=== PATIENT | female | born 1955 | race Caucasian/White ===

== ENCOUNTER 2019-01-27 15:49 | Emergency (ER) | payer SELFPAY ==
[2019-01-27] MEDS ORDERED: levoFLOXacin 500 MG TAB PO ONE (16:47)
--- NOTE | 2019-01-27 16:50 | ED.PDOC ---
History of Present Illness - General Chief Complaint: General Stated Complaint: eye drainage, cough, dysuria Time Seen by Provider: 01/27/19 16:07 Source: patient Exam Limitations: no limitations - History of Present Illness Initial Comments: the patient is a 63-year-old female presenting to emergency room secondary to a multitude of symptoms, most of which seem to be attributable to a Viral upper respiratory tract infection including itchy matted eyes, runny nose, sore throat, hoarseness and a cough. additionally over the last 2 days she has had some urinary frequency and dysuria. No chest pain or shortness of breath. No syncope. Timing/Duration: unsure Severity: mild Improving Factors: nothing Worsening Factors: nothing Associated Symptoms: cough, malaise Allergies/Adverse Reactions: Allergies NO KNOWN ALLERGY Allergy (Verified 01/27/19 15:57) Home Medications: Ambulatory Orders Hydrochlorothiazide 12.5 mg PO BID 01/27/19 Hydroxyzine HCl 25 mg PO BEDTIME 01/27/19 Metoprolol Tartrate [Lopressor] 100 mg PO BID 01/27/19 levoFLOXacin [Levaquin] 500 mg PO DAILY #5 tab 01/27/19 Review of Systems - Review of Systems Constitutional: States: malaise EENTM: States: nose congestion, throat pain Respiratory: States: cough Cardiology: States: no symptoms reported Gastrointestinal/Abdominal: States: no symptoms reported Genitourinary: States: frequency Musculoskeletal: States: no symptoms reported Skin: States: no symptoms reported Neurological: States: no symptoms reported Endocrine: States: no symptoms reported All other Systems: No Change from Baseline Past Medical History (General) - Patient Medical History Hx Stroke: No Hx Asthma: No Hx Cardiac Disorders: No Hx Hypertension: Yes Hx Diabetes: No Surgical History: other - Social History Hx Tobacco Use: No Family Medical History - Family History Mother Family History: No Known Physical Exam - Physical Exam General Appearance: Alert, Comfortable, No apparent distress Eye Exam: bilateral normal Ears, Nose, Throat: nasal congestion, pharyngeal erythema Neck: full range of motion, supple Respiratory: lungs clear, normal breath sounds, no respiratory distress, no accessory muscle use - she does have a mild clearing cough Cardiovascular/Chest: normal peripheral pulses, regular rate, rhythm, no edema Peripheral Pulses: radial,right: 2+, radial,left: 2+ Gastrointestinal/Abdominal: non tender, soft Rectal Exam: deferred Back Exam: other - significant scoliosis Extremity: normal range of motion, non-tender, normal inspection, no pedal edema, normal capillary refill Neurologic: cow trimmer II-XII nml as tested, alert, normal mood/affect, oriented x 3 Skin Exam: normal color Comments: Vital Signs - 24 hr 01/27/19 01/27/19 16:00 16:02 Temperature 97.6 F Pulse Rate [ 66 left brachial] Respiratory 18 20 Rate Blood Pressure 124/82 [left brachial] O2 Sat by Pulse 100 Oximetry Laboratory Tests 01/27/19 16:00 Urine Color Yellow Urine Appearance Sl cloudy Urine pH 7.0 Ur Specific [place] 1.015 Urine Protein Negative Urine Glucose (UA) Negative Urine Ketones Trace Urine Blood Small H Urine Nitrite Negative Urine Bilirubin Negative Urine Urobilinogen 1.0 Ur Leukocyte Esterase Small H Urine RBC 3-5 H Urine WBC 5-10 H Ur Epithelial Cells 0-1 Amorphous Sediment 1+ Urine Bacteria 0 Progress - Progress Progress: 01/27/19 16:50 the patient is a 63-year-old female presenting to emergency room with symptoms of a viral upper respiratory tract infection that does appear to be clearing. She can take [id number] Zyrtec once daily along with low dose of Motrin twice daily for the next few days to reduce symptoms. She does have a small urinary tract infection and is going to be placed on Levaquin 500 milligrams daily for 5 days. Urine will be cultured. She needs to keep herself well-hydrated. ER warnings were given for any worsening. Departure - Departure Clinical Impression: Urinary tract infection Qualifiers: Urinary tract infection type: acute cystitis Hematuria presence: without hematuria Qualified Code(s): N30.00 - Acute cystitis without hematuria Upper respiratory infection Qualifiers: URI type: unspecified viral URI Qualified Code(s): J06.9 - Acute upper respiratory infection, unspecified Disposition: Discharge to Home or Self Care Condition: Fair Departure Forms: ED Discharge - Pt. Copy, Patient Portal Self Enrollment Instructions: Urinary Tract Infection, Adult (DC), Viral Upper Respiratory Infection, Adult (DC) Diet: regular diet Activity: increase activity as tolerated Referrals: JOCELYNE GRIER NP [Primary Care Provider] - 1-2 Weeks Prescriptions: levoFLOXacin [Levaquin] 500 mg PO DAILY #5 tab Home Medications: Ambulatory Orders Hydrochlorothiazide 12.5 mg PO BID 01/27/19 Hydroxyzine HCl 25 mg PO BEDTIME 01/27/19 Metoprolol Tartrate [Lopressor] 100 mg PO BID 01/27/19 levoFLOXacin [Levaquin] 500 mg PO DAILY #5 tab 01/27/19 Additional Instructions: the patient is a 63-year-old female presenting to emergency room with symptoms of a viral upper respiratory tract infection that does appear to be clearing. She can take [id number] Zyrtec once daily along with low dose of Motrin twice daily for the next few days to reduce symptoms. She does have a small urinary tract infection and is going to be placed on Levaquin 500 milligrams daily for 5 days. Urine will be cultured. She needs to keep herself well-hydrated. ER warnings were given for any worsening.
[2019-01-27 16:58] VITALS: BP 153/89; TEMP 97.3; O2SAT 97
== END 2019-01-27 16:58 | disposition home or self-care (01) ==
LOC: ER 15:49
DX: N30.00 Acute cystitis without hematuria (principal); J06.9 Acute upper respiratory infection, unspecified; I10 Essential (primary) hypertension

== ENCOUNTER 2019-03-17 14:02 | Observation (INO) | payer BC ==
[2019-03-17] MEDS ORDERED: ONDANSETRON ODT 8 MG TAB SL ONE (14:35)
[2019-03-17] MEDS ORDERED: SODIUM CHLORIDE 0.9% 1000ML 1,000 ML IVS ONE (14:35)
[2019-03-17] MEDS ORDERED: SUCRALFATE 1 GM/10 ML 1 GM UD PO ONE (14:35)
[2019-03-17] MEDS ORDERED: POTASSIUM CHLORIDE ELIXIR 20 MEQ/15 ML UD PO ONE (15:27)
[2019-03-17] MEDS ORDERED: POTASSIUM CHLORIDE ELIXIR 20 MEQ/15 ML UD ONE (15:27)
[2019-03-17] MEDS ORDERED: MAGNESIUM SULFATE PREMIX 2GM 2 GM in PREMIX BAG 1 BAG IVPB ONE (15:27)
[2019-03-17] MEDS ORDERED: MAGNESIUM SULFATE PREMIX 2GM 50 ML IVPB ONE (15:29)
--- NOTE | 2019-03-17 15:32 | RAD ---
XR ABDOMEN SUPINE AND ERECT WITH CHEST (ABD ACUTE SERIES) HISTORY: 63 years Female nvd 3 days with dizziness COMPARISON: None. TECHNIQUE: Single AP view of the chest and AP supine and upright views of the abdomen. FINDINGS: Severe scoliotic curvature of the thoracolumbar spine. Lungs are mildly hyperexpanded but otherwise clear. No focal consolidation, pleural effusion, or pneumothorax observed. Cardiac silhouette appears within normal limits. Large lucent focus projecting over the lower mediastinum is suggestive of a large hiatal hernia. Atherosclerotic changes are present in the thoracic aorta. Bowel gas pattern is nonspecific. No radiographic evidence of obstruction. No pathologic calcifications are identified with certainty. No acute osseous abnormality detected within the imaged [id number]. IMPRESSION: No evidence of acute cardiopulmonary process. No evidence of an acute intra-abdominal process. Probable large hiatal hernia. Severe scoliotic curvature of the spine. Electronically signed by: Reagan Hartley MD 03/17/2019 3:31 PM CDT
[2019-03-17] MEDS ORDERED: PROMETHAZINE HCL INJ 25 MG in SODIUM CHLORIDE 0.9% 50ML 50 ML IVPB ONE (16:07)
--- NOTE | 2019-03-17 16:21 | ED.PDOC ---
History of Present Illness - General Chief Complaint: General Stated Complaint: Dizziness, nausea Time Seen by Provider: 03/17/19 14:31 Source: patient Exam Limitations: no limitations - History of Present Illness Initial Comments: the patient is a 63-year-old female presenting to the emergency room secondary to a multitude of symptoms progressive over the last couple of weeks. The patient reports that she's had a couple of weeks of feeling tired and a little bit short of breath with exertion. A few days ago she had some palpitations. Yesterday she started having a little bit of diarrhea and a few episodes of nausea and vomiting. She has not been eating well for the last month or 2 she has had a poor appetite. She has had recent psychological stressors due to social standing. No definite fever. No blood in the stool or vomit. No abdominal pain. She does take hydrochlorothiazide twice daily. Timing/Duration: unsure Severity: moderate Improving Factors: nothing Worsening Factors: nothing Associated Symptoms: headaches, loss of appetite, malaise, nausea/vomiting, shortness of breath, weakness Allergies/Adverse Reactions: Allergies NO KNOWN ALLERGY Allergy (Verified 01/27/19 15:57) Home Medications: Ambulatory Orders Hydrochlorothiazide 12.5 mg PO BID 01/27/19 Hydroxyzine HCl 25 mg PO BEDTIME 01/27/19 Metoprolol Tartrate [Lopressor] 100 mg PO BID 01/27/19 Review of Systems - Review of Systems Constitutional: States: malaise, weakness - generalized EENTM: States: no symptoms reported Respiratory: States: short of breath Cardiology: States: palpitations Gastrointestinal/Abdominal: States: diarrhea, nausea, vomiting Genitourinary: States: no symptoms reported Musculoskeletal: States: no symptoms reported Skin: States: no symptoms reported Neurological: States: anxiety Endocrine: States: no symptoms reported All other Systems: No Change from Baseline Past Medical History (General) - Patient Medical History Hx Stroke: No Hx Asthma: No Hx Cardiac Disorders: No Hx Congestive Heart Failure: No Hx Hypertension: Yes Hx Diabetes: No Surgical History: other - Vaccination History Hx Influenza Vaccination: Yes - 2018 Hx Pneumococcal Vaccination: No - Social History Hx Tobacco Use: No Hx Alcohol Use: Yes - Occasional Family Medical History - Family History Mother Family History: No Known Living Status: Still Living Physical Exam - Physical Exam General Appearance: Alert, No apparent distress, Other - the patient does appear a little bit depressed Eye Exam: bilateral normal Ears, Nose, Throat: hearing grossly normal, normal ENT inspection Neck: full range of motion, supple Respiratory: lungs clear, normal breath sounds, no respiratory distress, no accessory muscle use Cardiovascular/Chest: normal peripheral pulses, regular rate, rhythm, no edema Peripheral Pulses: radial,right: 2+, radial,left: 2+, dorsalis pedis,right: 2+, dorsalis pedis,left: 2+ Gastrointestinal/Abdominal: non tender, soft, other - no definite palpable mass. No rebound or peritoneal signs. Rectal Exam: deferred Back Exam: no CVA tenderness, no vertebral tenderness Extremity: normal range of motion, non-tender, normal inspection, no pedal edema, normal capillary refill Neurologic: public health social worker II-XII nml as tested, alert, normal mood/affect - the patient does appear visibly upset., oriented x 3 Skin Exam: normal color Comments: Vital Signs - 24 hr 03/17/19 03/17/19 14:10 15:03 Temperature 96.4 F L Pulse Rate [ 98 H 73 Left Radial] Respiratory 18 18 Rate Blood Pressure 140/82 140/82 [Left Arm] O2 Sat by Pulse 98 97 Oximetry Progress - Progress Progress: 03/17/19 16:23 the patient is 63-year-old female presenting to the emergency room secondary to a multitude of symptoms progressive over the last several weeks. The patient significantly has significant hyponatremia, hypochloremia, hypokalemia and hypomagnesemia. She is receiving IV fluids in an attempt to correct these. She will need to be admitted for slow correction of the sodium. While it is possible she may have a gastroenteritis that is going around town contributing to this issue, it is also very possible that the electrolyte imbalances causing some of the nausea and vomiting. She also apparently does have a fairly large hiatal hernia that is likely contributing. She'll need telemetry monitoring. Vital signs are stable. EKG is reassuring. Admit for correction of the above issues. - Results/Orders Results/Orders: acute abdominal series appears benign. EKG shows normal sinus rhythm at a rate of 73 bpm. Slow R-wave progression. Normal axis. Significant background static. No definitive ST segment or T-wave changes indicative of acute ischemia. Normal QT interval. Laboratory Results - last 24 hr 03/17/19 03/17/1919 14:45 14:45 14:45 WBC 11.3 H RBC 4.87 Hgb 15.1 Hct 41.6 MCV 85.6 MCH 31.0 MCHC 36.3 RDW 12.7 Plt Count 222 MPV 9.9 Absolute Neuts (auto) 9.40 H Absolute Lymphs (auto) 0.90 L Absolute Monos (auto) 0.90 H Absolute Eos (auto) 0.00 Absolute Basos (auto) 0.00 Neutrophils % 83.3 H Lymphocytes % 8.1 L Monocytes % 7.9 Eosinophils % 0.3 L Basophils % 0.4 Sodium 120 L Potassium 2.7 L Chloride 77 L* Carbon Dioxide 28 Anion Gap 17.7 BUN 15 Creatinine 0.49 L BUN/Creatinine Ratio 30.6 H Random Glucose 108 H Serum Osmolality 243.6 L* Lactic Acid Calcium 9.2 Magnesium 1.5 L Total Bilirubin 1.2 H AST 16 ALT 14 Alkaline Phosphatase 43 Creatine Kinase 50 CK-MB (CK-2) 3.4 CK-MB (CK-2) % Not Reportable Troponin I < 0.02 B-Natriuretic Peptide 127.0 H Serum Total Protein 6.9 Albumin 4.2 Globulin 2.7 Albumin/Globulin Ratio 1.6 Amylase 27 L Lipase 20 L 03/17/19 14:45 WBC RBC Hgb Hct MCV MCH MCHC RDW Plt Count MPV Absolute Neuts (auto) Absolute Lymphs (auto) Absolute Monos (auto) Absolute Eos (auto) Absolute Basos (auto) Neutrophils % Lymphocytes % Monocytes % Eosinophils % Basophils % Sodium Potassium Chloride Carbon Dioxide Anion Gap BUN Creatinine BUN/Creatinine Ratio Random Glucose Serum Osmolality Lactic Acid 1.0 Calcium Magnesium Total Bilirubin AST ALT Alkaline Phosphatase Creatine Kinase CK-MB (CK-2) CK-MB (CK-2) % Troponin I B-Natriuretic Peptide Serum Total Protein Albumin Globulin Albumin/Globulin Ratio Amylase Lipase Departure - Departure Clinical Impression: Hyponatremia, Hypokalemia, Hypomagnesemia, Hypochloremia, Mild dehydration Nausea and vomiting Qualifiers: Vomiting type: unspecified Vomiting Intractability: non-intractable Qualified Code(s): R11.2 - Nausea with vomiting, unspecified Disposition: Admit Patient Departure Forms: ED Discharge - Pt. Copy, Patient Portal Self Enrollment Referrals: Camille Bhatti NP [Primary Care Provider] - 1-2 Weeks Home Medications: Ambulatory Orders Hydrochlorothiazide 12.5 mg PO BID 01/27/19 Hydroxyzine HCl 25 mg PO BEDTIME 01/27/19 Metoprolol Tartrate [Lopressor] 100 mg PO BID 01/27/19 Decision To Admit - Decistion To Admit Decision to Admit Reason: Medical Nature Decision to Admit Date: 03/17/19 Decision to Admit Time: 16:26
[2019-03-17] MEDS ORDERED: SODIUM CHLORIDE 0.9% (FLUSH) 10 ML SYG IV PRN (18:46)
[2019-03-17] MEDS ORDERED: IV SET AND CAP CHANGE INJ INJ SCH (19:00)
[2019-03-17] MEDS ORDERED: KCL 20MEQ/0.45% NS 0 ML IVS ONE (19:30)
[2019-03-17] MEDS: KCL 20MEQ/D5NS 1,000 ML IVS PRN (19:52)
--- NOTE | 2019-03-17 20:11 | SSS ---
SUPERVISING PHYSICIAN: Brandon Dubois M.D. CHIEF COMPLAINT: Generalized weakness and dizziness. HISTORY OF PRESENT ILLNESS: This is a 63 year-old female who came into the Emergency Room for generalized symptoms such as weakness, dizziness, feeling tired and a little bit of shortness of breath as well. She states that last Sunday she saw the nurse practitioner, Isabell Bhatti, at the clinic for the first time. At that time she had a reduction in her blood pressure medicine as well as her HCTZ. She states she was taking it twice a day and had moved to once a day. The patient states she was placed on Prozac and she had to have it due to the separation with her for the last 8 months or so. On Sunday, she stated the medication and changed her HCTZ as well as Metoprolol. When she did so she states by Sunday she felt a little bit odd in the back but she was weak and has had electrolytes imbalances before and felt pretty similarly. Over the weekend she did not feel any better and today she just really could not get up. Therefore she came to the E. R. earlier this afternoon. In the E. R., her workup included a CBC which showed a mild elevation in her WBCs to 11.3. She had a low sodium at 120, potassium 2.7, chloride 77, magnesium 1.5. Amylase and lipase were negative. She really denies any other symptoms. She states that on Sunday she that the Prozac was causing her symptoms so she discontinued that on her own. In the E. R., she was given some magnesium as well as p.o. potassium. She has been admitted into observation for volume repletion and electrolyte replacement. PAST MEDICAL HISTORY: 1. Hypertension. 2. Depression with anxiety. CURRENT MEDICATIONS: 1. Hydrochlorothiazide 12.5 mg p.o. b.i.d. 2. Hydroxyzine 25 mg p.o. at bedtime. 3. Toprol 100 mg p.o. b.i.d. ALLERGIES: NO KNOWN DRUG ALLERGIES. FAMILY HISTORY: Reviewed and noncontributory. REVIEW OF SYSTEMS: CONSTITUTIONAL: The patient has no fever, no chills. No recent weight loss or weight gain. Positive for malaise. HEENT: No headaches, vision changes, ear pain, nasal congestion or throat pain. RESPIRATORY: No cough, hemoptysis or pleuritic chest pain. CARDIOVASCULAR: No chest pain, palpitations or peripheral edema. GASTROINTESTINAL: Positive for some nausea and vomiting. One bout of diarrhea in the E. R. earlier. No abdominal pain or constipation. GENITOURINARY: No dysuria, frequency or flank pain. MUSCULOSKELETAL: No joint pain or muscle cramps. ENDOCRINE: No polydipsia, polyuria or polyphagia. No heat or cold intolerance. NEUROLOGIC: Positive for dizziness. No syncope, paresthesias or seizures. HEMATOLOGIC: No easy bruising or transfusion reaction. PHYSICAL EXAMINATION: VITAL SIGNS: Blood pressure 150/76, heart rate 76, respiratory rate 20, temperature 97.9, oxygen saturation 97%. GENERAL: Ms. Cobb is a 63 year-old female who is in no active distress currently. CHEST: Lungs are clear to auscultation bilaterally. CARDIOVASCULAR: Regular rate and rhythm. Normal S1 and S2. ABDOMEN: Soft, positive bowel sounds. GENITOURINARY: Exam is deferred. EXTREMITIES: Lower extremities with no edema. NEUROLOGIC: Alert and oriented. LABORATORY: Labs and films as discussed in the history of present illness, except for the abdominal film which indicates there is a fairly large hiatal hernia. ASSESSMENT: 1. Significant electrolyte imbalance including magnesium, potassium as well as sodium levels. 2. Dehydration contributing to #1. 3. Depression with anxiety. 4. Possible gastroenteritis although the symptoms seem to be more related to the stress levels. 5. History of hypertension. 6. Newly found hiatal hernia. PLAN: At this time the patient will be admitted for volume replacement and electrolyte replacement. Early ambulation for DVT prophylaxis. I will place her on a PPI due to the possible gastritis issues. Will recheck her labs in the morning as well. I am going to leave it up to her primary care physician on resuming her Prozac. The patient only took it for 3 days and has not taken it for the last 3 days, so I am not sure enough of it is in her system to really take an effect anyhow. #[id number] MTDD
[2019-03-18] MEDS: KCL 20MEQ/D5NS 1,000 ML IVS PRN ×2 (03:55→12:19)
[2019-03-18] MEDS ORDERED: PANTOPRAZOLE SODIUM TAB 40 MG PO SCH (06:30)
[2019-03-18] MEDS ORDERED: LOSARTAN POTASSIUM 25 MG TAB PO SCH (09:00)
[2019-03-18 14:16] VITALS: BP 140/75; TEMP 98.2; O2SAT 98
[2019-03-18] MEDS ORDERED: MAGNESIUM OXIDE 400 MG TAB PO ONE (14:43)
[2019-03-18] MEDS ORDERED: POTASSIUM CHLORIDE 20 MEQ TAB PO ONE (14:44)
== END 2019-03-18 16:15 | disposition home or self-care (01) ==
LOC: ER 14:02 → MS 16:59
PROVIDERS: ADMIT Nurse Practitioner; ATTEND Nurse Practitioner
DX: E83.42 Hypomagnesemia (principal); E87.6 Hypokalemia; E87.1 Hypo-osmolality and hyponatremia; E87.8 Other disorders of electrolyte and fluid balance, not elsewhere classified; E86.0 Dehydration; F41.8 Other specified anxiety disorders; I10 Essential (primary) hypertension; K44.9 Diaphragmatic hernia without obstruction or gangrene; Z79.899 Other long term (current) drug therapy
CPT/HCPCS: 96361; 96366 ×2; 96367; 96365; 96376; J7030; J3475; 80048 ×2; 82553; 80053; 36415 ×5; 82150; 81001; 85025 ×2; 82550; 83690; 83735 ×2; 84484; 83880; 83605; 74019; 99285; 93005; G0378

== ENCOUNTER 2019-03-21 11:29 | Inpatient (IN) | payer BC ==
--- NOTE | 2019-03-21 12:00 | ED.PDOC ---
History of Present Illness - General Chief Complaint: Chest Pain/GA Stated Complaint: Nausea, SOB, chest pressure Time Seen by Provider: 03/21/19 11:44 - History of Present Illness Initial Comments: Pt is a 63 y.o. F w/ pmh of HTN who presents to the ED for evaluation of nausea, chest discomfort and generalized malaise. Reports symptoms have been on going for a week. She was discharged from the hospital 3 days prior after being admitted for electrolyte abnormalities. She reports feeling better initially but then her symptoms returned last night where she was having dry heaving. Her HCTZ was switched to losartan. Chest pain is described as pressure, dull in nature, non radiating. 4/10 in severity. Allergies/Adverse Reactions: Allergies NO KNOWN ALLERGY Allergy (Verified 03/21/19 12:08) Home Medications: Ambulatory Orders Losartan Potassium [Cozaar] 50 mg PO DAILY 30 Days #30 tab 03/18/19 Review of Systems - Review of Systems Constitutional: States: malaise, weakness EENTM: States: no symptoms reported Respiratory: States: no symptoms reported Cardiology: States: chest pain, palpitations Gastrointestinal/Abdominal: States: nausea, vomiting Genitourinary: States: no symptoms reported Musculoskeletal: States: no symptoms reported Skin: States: no symptoms reported Neurological: States: no symptoms reported Endocrine: States: no symptoms reported Hematologic/Lymphatic: States: no symptoms reported All other Systems: Reviewed and Negative Past Medical History (General) - Patient Medical History Hx Seizures: No Hx Stroke: No Hx Asthma: No Hx of COPD: No Hx Cardiac Disorders: No Hx Congestive Heart Failure: No Hx Pacemaker: No Hx Hypertension: No Hx Diabetes: No Hx MRSA: No - Vaccination History Hx Influenza Vaccination: Yes - 2018 Hx Pneumococcal Vaccination: No - Social History Hx Tobacco Use: No Hx Alcohol Use: No Hx Substance Use: No Hx Physical Abuse: No Hx Emotional Abuse: No Family Medical History - Family History Mother Family History: No Known Living Status: Still Living Physical Exam - Physical Exam General Appearance: Alert, Comfortable Eyes, Ears, Nose, Throat Exam: normal ENT inspection, pharynx normal Neck: non-tender, supple Respiratory: chest non-tender, lungs clear Cardiovascular/Chest: normal peripheral pulses, regular rate, rhythm Gastrointestinal/Abdominal: non tender, soft Rectal Exam: deferred Extremity: normal inspection, no pedal edema Neurologic: alert, oriented x 3 Skin Exam: normal color, warm/dry Progress - Progress Progress: 03/21/19 12:05 [facility] patient w/ h/o HTN presenting with generalized malaise, nausea, and chest discomfort. Recenlty admitted for similar symptoms, thought secondary to her HCTZ. Plan for labs, treat symptoms, reassess. 03/21/19 13:12 Spoke with Bouchra Alicia who accepts patient for admission for electrolyte abnormalities. - EKG/XRAY/CT Comments: NSR @ 93, normal axis, normal intervals, No STEMI Departure - Departure Clinical Impression: Hyponatremia, Hypokalemia, Hypomagnesemia, Nausea and vomiting Disposition: Admit Patient Condition: Good Departure Forms: ED Discharge - Pt. Copy, Patient Portal Self Enrollment Instructions: DI for Chest Pain Referrals: Camille Bhatti NP [Primary Care Provider] - 1-2 Weeks Home Medications: Ambulatory Orders Losartan Potassium [Cozaar] 50 mg PO DAILY 30 Days #30 tab 03/18/19
--- NOTE | 2019-03-21 12:20 | RAD ---
EXAM DESCRIPTION: Chest,2 Views CLINICAL HISTORY: chest pressure COMPARISON: None TECHNIQUE: PA/lateral FINDINGS: Dextroscoliotic curvature of the thoracolumbar spine. Heart is large with normal pulmonary vascularity. Hiatal hernia behind the heart. No pleural effusion or pneumothorax. Lungs are clear with no consolidating infiltrate. Lateral view shows intact sternum and T-spine. IMPRESSION: Large heart without congestive failure. Large hiatal hernia. Electronically signed by: Tushar Brooks MD 03/21/2019 12:18 PM CDT
[2019-03-21] MEDS ORDERED: MAGNESIUM SULFATE PREMIX 2GM 2 GM in PREMIX BAG 1 BAG IVPB ONE (12:48)
[2019-03-21] MEDS ORDERED: SODIUM CHLORIDE 0.9% 500ML 500 ML IVS ONE (12:48)
[2019-03-21] MEDS ORDERED: POTASSIUM CHLORIDE 20 MEQ TAB PO ONE (12:48)
[2019-03-21] MEDS ORDERED: MAGNESIUM SULFATE PREMIX 2GM 50 ML IVPB ONE (12:54)
--- NOTE | 2019-03-21 13:43 | HP ---
SUPERVISING PHYSICIAN: Brandon Dubois M.D. CHIEF COMPLAINT: Nausea with chest pressure and shortness of breath. . HISTORY OF PRESENT ILLNESS: The patient is a 63 year-old female who came to the Emergency Room due to nausea and chest discomfort. She has generally just felt poorly, though symptoms have been going on for over a week. She was actually in the hospital on 03/17/19 and was admitted at that time for electrolyte disturbance. She was sent home the next day. She initially felt better but then her symptoms returned. She has been nauseated, vomiting with dry heaves. Her Hydrochlorothiazide was recently switched to Losartan for her blood pressure Her chest pain was described as pressure, dull in nature, it was nonradiating. In the Emergency Room, her initial vital signs were temperature 97, heart rate 92, blood pressure 177/92, respiratory rate 18, oxygen saturation 94%. Laboratory studies showed a CBC that was unremarkable. Her chemistries showed a sodium of 119, potassium 3.3, chloride 81, carbon dioxide 25, calcium 8.9, magnesium 1.5. BUN 10, creatinine less than 0.40 and her serum osmolality was 239.1. Liver enzymes were basically within normal limits and her troponin was less than 0.02. TSH 1.09. Urinalysis showed 15 ketones, trace of intact blood, trace of urine leukocyte esterase and 10 to 20 urine WBCs. Her chest x-ray shows large heart without congestive failure and a large he is able to hernia. She was given some magnesium replacement as well as some oral potassium, some fluid bolus and I was called for hospital admission.. PAST MEDICAL HISTORY: 1. Hypertension. 2. Depression 3. Anxiety. CURRENT MEDICATIONS: Losartan. ALLERGIES: NO KNOWN DRUG ALLERGIES. SOCIAL HISTORY: She just recently moved to [place]. She denies any tobacco, ETOH or illicit drug use. REVIEW OF SYSTEMS: GENERAL: Positive for malaise and negative for fever or weight gain. HEENT: Negative for sinus symptoms, ear pain, vision changes or sore throat. RESPIRATORY: Negative for cough, wheezing, shortness of breath. . CARDIOVASCULAR: Positive for chest pressure, negative for or palpitations or tachycardia. GASTROINTESTINAL: Positive for nausea and vomiting. Negative for diarrhea, constipation. GENITOURINARY: Negative for dysuria, frequency or polyuria. . MUSCULOSKELETAL: Negative for arthralgias, myalgias. SKIN: Negative for lesions or rashes.. NEUROLOGIC: Negative for headaches, seizures or weakness. . HEMATOLOGIC: Negative for easy bruising or lymphadenopathy. [id number]: Positive for anxiety and depression. . PHYSICAL EXAMINATION: VITAL SIGNS: Temperature 98.6, heart rate 88. Blood pressure 148/73, respiratory rate 18, Oxygen saturation 98% on room air. GENERAL: This is a 63 year-old female who is lying in her hospital bed. She is in no active distress. HEENT: Normocephalic and atraumatic. Pupils are equal and reactive. Oropharynx is clear. NECK: Supple without mass. CHEST: Lungs are clear to auscultation bilaterally. Chest has equal rise and fall with inspiration and expiration. CARDIOVASCULAR: Regular rate and rhythm. ABDOMEN: Soft, nondistended. It is mildly tender to the epigastric area. Bowel sounds are positive. . EXTREMITIES: No cyanosis, clubbing, or edema. . NEUROLOGIC: Alert and oriented x3. Cranial nerves II through XII are grossly intact. SKIN: Warm and dry. LABORATORY: Labs and films are as per history of present illness.. ASSESSMENT: 1. Significant electrolyte imbalance including hypomagnesemia, hypokalemia and hyponatremia. 2. Urinary tract infection. 3. Dehydration contributing to #1. 4. Depression with anxiety. 5. Gastroesophageal reflux disease that most likely is contributing to #1.. 6. Hypertension. 7. Hiatal hernia. . PLAN: The patient will be admitted to the hospital. She will have IV fluids and will monitor her electrolytes closely. She is on a fluid restriction. At this point, we will hold on any kind of diuretics since she is fairly dehydrated. Start her on Rocephin for her urinary tract infection and will monitor cultures as they become available. She is o a clear liquid diet at this time and will advance that slowly as tolerated. Put her on a PPI for ulcer prophylaxis as well as Lovenox for DVT prophylaxis. I will restart her Losartan. I have given her some Xanax as needed for her anxiety. At some point, she had been on some Prozac and did not take it and we will need to clarify that as she may need to be on some sort of SSRI. We will repeat her lab in the morning and continue to monitor close and follow as needed. #[id number] MTDD
[2019-03-21] MEDS ORDERED: ONDANSETRON INJ 4 MG/2 ML VIAL IV PRN (14:45)
[2019-03-21] MEDS ORDERED: SODIUM CHLORIDE 0.9% (FLUSH) 10 ML SYG IV PRN (14:45)
[2019-03-21] MEDS: ACETAMINOPHEN 325 MG TAB PO PRN ×2 (15:47→20:01)
[2019-03-21] MEDS: KCL 20 MEQ/NS 1,000 ML IVS PRN ×2 (15:48→22:33)
[2019-03-21] MEDS: IV SET AND CAP CHANGE INJ INJ SCH (15:53)
[2019-03-21] MEDS: ALPRAZolam 0.25 MG TAB PO PRN (22:41)
[2019-03-21] MEDS: SODIUM CHLORIDE 0.9% (FLUSH) 10 ML SYG IV SCH (23:27)
[2019-03-22] MEDS: SODIUM CHLORIDE 0.9% 1000ML 1,000 ML IVS PRN ×3 (05:20→21:29)
[2019-03-22] MEDS: SODIUM CHLORIDE 0.9% (FLUSH) 10 ML SYG IV SCH ×2 (08:20→22:48)
[2019-03-22] MEDS: LOSARTAN POTASSIUM 25 MG TAB PO SCH (08:20)
[2019-03-22] MEDS ORDERED: MAGNESIUM HYDROXIDE 30 ML UD PO ONE (11:06)
[2019-03-22] MEDS ORDERED: MAGNESIUM CITRATE 300 ML BTTL PO ONE (13:23)
--- NOTE | 2019-03-22 16:11 | PN ---
SUPERVISING PHYSICIAN: Brandon Dubois MD DATE: SUBJECTIVE: Patient is sitting up in her bed talking with a friend. She has no complaints of chest pain or shortness of breath but she does complain of constipation, although she does admit that she has not eaten much over the last week or so. She does have frequent problems with constipation. We discussed her plan of care and that she would need to see a fixture repairer fabricator due to the continued problems with hyponatremia. OBJECTIVE: VITAL SIGNS: Temperature 97.8, heart rate 84, blood pressure 149/80, respiratory rate 16, oxygen saturation 98% on room air. CHEST: Essentially clear to auscultation bilaterally. CARDIAC: Regular rate and rhythm. GI: Abdomen soft, nondistended, non-tender. Bowel sounds are positive. NEURO: She is awake, alert, and oriented x3. LABORATORY: CBC is basically within normal limits. Chemistries show sodium 122, potassium 4.3, chlorides 92, carbon dioxide 22, BUN less than negative 5, creatinine less than 0.4, serum osmolality 243.0, calcium 8.2, magnesium 1.9, alkaline phosphatase 40, serum total protein 5. Urine culture is pending. All other labs and films have been reviewed via the EMR. ASSESSMENT: 1. Significant electrolyte imbalance including hypomagnesemia, hypokalemia and hyponatremia. 2. Urinary tract infection. 3. Dehydration contributing to #1. 4. Depression with anxiety. 5. Gastroesophageal reflux disease that most likely is contributing to #1.. 6. Hypertension. 7. Hiatal hernia. . PLAN: We will continue present supportive care. At this point, I will continue with her fluids. She may need some Lasix tomorrow. She will continue on fluid restrictions. I advanced her diet, she tolerated it without problems. I gave her some laxative. I am also going to do a workup on her hyponatremia that includes urine osmolality, a random urine sodium and will do routine lab. I will also do a CT of the chest to rule out any small cell lung cancer. She will need a followup with Dr. Rivers and will try to get an appointment with him by calling his office on Sunday. I have also ordered a hemoglobin A1C as she has had a 35-pound weight loss in about 8 to 9 months, although she has been through a very stressful divorce in her family. Otherwise, we will continue to monitor her closely and follow as needed. #[id number] MTDD
[2019-03-22] MEDS: ALPRAZolam 0.25 MG TAB PO PRN ×2 (21:30→22:54)
[2019-03-22] MEDS: DOCUSATE SODIUM 100 MG CAP PO SCH (21:30)
[2019-03-22] MEDS: ACETAMINOPHEN 325 MG TAB PO PRN (22:52)
[2019-03-23] MEDS: SODIUM CHLORIDE 0.9% 1000ML 1,000 ML IVS PRN ×2 (05:14→14:39)
--- NOTE | 2019-03-23 07:30 | CT ---
Sex: Female. : 1955. TECHNIQUE: Axial scans of the chest was performed without intravenous contrast including computer reformations. Total Dose Length Product: 198. This exam was performed according to our departmental dose-optimization program, which includes automated exposure control, adjustment of the mA and/or kV according to patient size and/or use of iterative reconstruction technique. Comparison studies: Chest x-ray March 21, 2019. Clinical history: hyponatremia. Findings: Cardiac: Heart size: Borderline enlarged. Coronary and mitral annular calcification Pericardial effusion: There is a minimal pericardial effusion. The fluid thickness measures about 4 mm. Vasculature: Aorta: Mild calcification.. Pulmonary arteries: No dilatation. Lungs: Reticular opacities toward the lung bases. Greater on the left. Consistent with atelectasis. Pleura: No effusion. Mediastinum: 9 cm esophageal/paraesophageal hiatus hernia. Small anterior mediastinal nodes. Dorinda: No mass. Musculoskeletal: 41 degrees of thoracic dextroscoliosis. Upper abdomen: Aortic atherosclerosis. IMPRESSION: 1. Basilar atelectasis. 2. 9 cm hiatus hernia. 3. Small pericardial fluid. 4. Dextroscoliosis. Electronically signed by: Tristan Obrien MD 03/23/2019 7:27 AM CDT
[2019-03-23] MEDS: LOSARTAN POTASSIUM 25 MG TAB PO SCH (09:20)
[2019-03-23] MEDS: DOCUSATE SODIUM 100 MG CAP PO SCH ×2 (09:20→20:22)
[2019-03-23] MEDS: SODIUM CHLORIDE 0.9% (FLUSH) 10 ML SYG IV SCH ×2 (09:20→20:22)
[2019-03-23] MEDS ORDERED: MAGNESIUM SULFATE PREMIX 2GM 2 GM in PREMIX BAG 1 BAG IVPB ONE (09:20)
[2019-03-23] MEDS ORDERED: MAGNESIUM SULFATE PREMIX 2GM 50 ML IVPB ONE (11:38)
--- NOTE | 2019-03-23 17:02 | PN ---
DATE: 03/23/19 SUPERVISING PHYSICIAN: Brandon Dubois M.D. SUBJECTIVE: The patient is sitting up in bed. We discussed at length her personal situation and all of her health issues. She is very tearful and has tried multiple antidepressants without any degree of relief. She is going through a hostile divorce at this time. She said she was not suicidal but she was very depressed and anxious, and has a difficult time with dealing with a lot of her personal issues. She felt like the Xanax, although helpful, was a little too strong for her, so will decrease her Xanax dose and I feel like she needs to be started on a antidepressant. We discussed that as well. Otherwise she denies any chest pain, shortness of breath, nausea or vomiting. OBJECTIVE: VITAL SIGNS: Temperature 98, heart rate 84, blood pressure 152/79, respiratory rate 16, O2 sat 98% on room air. RESPIRATORY: Essentially clear to auscultation bilaterally. CARDIAC: Regular rate and rhythm. GASTROINTESTINAL: Abdomen is soft, nondistended, non-tender. Bowel sounds are positive. NEUROLOGIC: She is awake, alert and oriented times three. PSYCHIATRIC: She is tearful. She is depressed and very anxious, but very cooperative. LABORATORY: CBC is unremarkable with sodium that has improved to 125, chloride 93, creatinine 0.5, hemoglobin A1c 5.8, serum osmolality 248.8, calcium 8.1, magnesium 1.7. Urine culture is still pending. Urine random sodium is 65. Urine osmolality is pending. CT of the chest shows: 1. Basilar atelectasis. 2. 9 cm hiatal hernia. 3. Small paracardial fluid. 4. Dextroscoliosis. All other labs and films have been reviewed via the EMR. ASSESSMENT: 1. Significant electrolyte imbalance including hypomagnesemia, hypokalemia and hyponatremia. 2. Urinary tract infection. 3. Dehydration contributing to #1. 4. Depression with anxiety. 5. Gastroesophageal reflux disease that most likely is contributing to #1.. 6. Hypertension. 7. Hiatal hernia. . 8. Significant weight loss of 35 pounds over the last 8 to 9 months. Hemoglobin A1c was normal and may be due to increased stress and anxiety. PLAN: We will continue present supportive care. She will have magnesium replacement today. On Sunday, she needs a Dr. Rivers appointment to followup on her hyponatremia. I have done lab for in the morning and decreased her IV fluids. I have also ordered her some Pristiq to start after she gets out of the hospital. She can followup with Isabell Bhatti at that time. Will continue to monitor closely and follow as needed. #[id number] MTDD
[2019-03-23] MEDS: ALPRAZolam 0.25 MG TAB PO PRN (19:41)
[2019-03-23] MEDS: ACETAMINOPHEN 325 MG TAB PO PRN (19:41)
[2019-03-24] MEDS: SODIUM CHLORIDE 0.9% 1000ML 1,000 ML IVS PRN ×2 (02:07→14:39)
[2019-03-24] MEDS: DOCUSATE SODIUM 100 MG CAP PO SCH ×2 (08:36→20:35)
[2019-03-24] MEDS: LOSARTAN POTASSIUM 25 MG TAB PO SCH (08:36)
[2019-03-24] MEDS: SODIUM CHLORIDE 0.9% (FLUSH) 10 ML SYG IV SCH ×2 (08:36→20:36)
[2019-03-24] MEDS ORDERED: levETIRAcetam 250 MG TAB ONE (10:08)
[2019-03-24] MEDS: ACETAMINOPHEN 325 MG TAB PO PRN ×2 (14:39→22:04)
[2019-03-24] MEDS: IV SET AND CAP CHANGE INJ INJ SCH (14:39)
[2019-03-24] MEDS: ALPRAZolam 0.25 MG TAB PO PRN (21:17)
[2019-03-25] MEDS: SODIUM CHLORIDE 0.9% 1000ML 1,000 ML IVS PRN ×2 (03:58→18:43)
--- NOTE | 2019-03-25 07:56 | PN ---
SUPERVISING PHYSICIAN: Arturo Parra MD DATE: SUBJECTIVE: The patient is still anxious but she notes she feels better than she has since she has been in the hospital. She is still having some shortness of breath with exertional effort. We do have an echocardiogram pending. We discussed possibly having a consultation with Fabiola Crisostomo in regards to depression once discharged. She has not had any chest pain. nausea or vomiting. OBJECTIVE: VITAL SIGNS: Temperature 93, heart rate 74, blood pressure 145/73, respiratory rate 16, oxygen saturation 97% on room air. I&Os show negative balance of 70, weight 56.1 kg. GENERAL: The patient appears to be resting comfortably, just feels anxious but alert. CHEST: Lung sounds were fairly clear throughout, just diminished towards the bases. CARDIAC: Regular rate and rhythm. GASTROINTESTINAL: Abdomen is soft, nondistended, non-tender. Bowel sounds are positive. EXTREMITIES: No cyanosis, clubbing, or edema. NEUROLOGIC: She is alert and oriented times three. LABORATORY: White count within normal limits. Hemoglobin and hematocrit normal at 13.1 and 38.5 respectively. Platelet count 220,000, differential shows to be without a left shift. Chemistries show slightly improving sodium at 128, potassium 3.5, chloride remains low at 90, BUN less than 5, creatinine 0.48. Serum osmolality 255. Liver functions all within normal limits. No additional laboratory findings. MICROBIOLOGY: Urine culture showed 50 to 100,000 urogenital laura. No common pathogens. RADIOLOGY: No additional studies.. ASSESSMENT: 1. Significant electrolyte imbalance including hypomagnesemia, hypokalemia and hyponatremia slowly return to baseline levels. 2. Urinary tract infection, note no common pathogens were isolated on final culture results. 3. Dehydration contributing to #1 and resolving with fluids. 4. Depression with anxiety. 5. Gastroesophageal reflux disease that most likely is contributing to #1.. 6. Hypertension. 7. Hiatal hernia. . 8. Significant weight loss of 35 pounds over the last 8 to 9 months. Hemoglobin A1c was normal and may be due to increased stress and anxiety. PLAN: Will continue with plan of care at this point with slow replacement of her sodium. We have final culture results back which did not show any significant infection. Will not start her on any antibiotics at this point. Will anticipate to hopefully discharge tomorrow. I did discuss with her seeing James Crisostomo which I will talk to her about a consultation regarding depression. Will start her on Pristiq once she is discharged. Once she is discharged, she will need to followup with Camille Bhatti. Until the, we will continue to monitor as needed. #[id number] MTDD
[2019-03-25] MEDS: ACETAMINOPHEN 325 MG TAB PO PRN ×3 (09:39→21:18)
[2019-03-25] MEDS: DOCUSATE SODIUM 100 MG CAP PO SCH ×2 (09:39→20:04)
[2019-03-25] MEDS: LOSARTAN POTASSIUM 25 MG TAB PO SCH (09:39)
[2019-03-25] MEDS: SODIUM CHLORIDE 0.9% (FLUSH) 10 ML SYG IV SCH ×2 (09:40→20:04)
--- NOTE | 2019-03-25 21:40 | PN ---
DATE: 03/25/19 SUPERVISING PHYSICIAN: Arturo Parra M.D. SUBJECTIVE: The patient continues to be anxious but she seems to be doing better today. Her sodium has dropped a little bit but she is not showing any symptoms right at this point. She did have a session with Fabiola Crisostomo in regards to treatment as an outpatient for her depression. She has had no other complaints. OBJECTIVE: VITAL SIGNS: Temperature 98.3, pulse 94, blood pressure 164/85, respirations 18, satting 98% on room air. I's and O's show a negative balance of 221. Weight is 54.7 kg which is down from admission of 57.2 kg. GENERAL: The patient is a little anxious but resting comfortably. Appears to be in no acute distress. CHEST: Lung sounds are clear to auscultation. HEART: Regular rate and rhythm. ABDOMEN: Soft, non-tender. Positive bowel sounds. EXTREMITIES: Without any edema. NEUROLOGIC: She is alert and oriented times three. LABORATORY STUDIES: Sodium is again down to 127, potassium has normalized to 3.7. Osmolality is 253, calcium 8.7. Urine chemistry showed her urine osmolality was 225 with a urine sodium of 65. Urine culture final report showed 50,000 to 100,000 colony forming units. No common pathogens. ASSESSMENT: 1. Persistent hyponatremia, still uncertain etiology, more likely SIADH awaiting further testing with the patient continuing to be on parenteral replacement. 2. Acute cystitis with no evidence of infection with the patient not showing complications. 3. Dehydration, resolved. 4. Depression with anxiety. 5. Gastroesophageal reflux disease that most likely is contributing to #1.. 6. Hypertension. 7. Hiatal hernia. . 8. Significant weight loss of 35 pounds over the last 8 to 9 months. Hemoglobin A1c was normal and may be due to increased stress and anxiety. PLAN: Will go ahead and continue with sodium replacement with saline today. She does remain on fluid restrictions of less than 1500 mL per day which she is actually staying close to. Will plan to do an ACTH stimulation test to monitor cortisol levels. I would anticipate if she does show stabilization or at least comes up on her sodium a couple of points, that we can discharge her home tomorrow to followup with Dr. Rivers. Until we can transition her to outpatient management will continue to treat as needed. She has been referred to James Crisostomo for counseling once discharge and will be started on Pristiq for depression. She will need to also followup with Isabell Bhatti at discharge. #[id number] MTDD
[2019-03-26] MEDS: LOSARTAN POTASSIUM 25 MG TAB PO SCH (08:22)
[2019-03-26] MEDS: DOCUSATE SODIUM 100 MG CAP PO SCH (08:22)
[2019-03-26] MEDS ORDERED: COSYNTROPIN 0.25 MG VIAL IV ONE (08:30)
[2019-03-26] MEDS: SODIUM CHLORIDE 0.9% 1000ML 1,000 ML IVS PRN (08:55)
[2019-03-26] MEDS: SODIUM CHLORIDE 0.9% (FLUSH) 10 ML SYG IV SCH (09:14)
[2019-03-26] MEDS: ACETAMINOPHEN 325 MG TAB PO PRN (13:39)
[2019-03-26 18:29] VITALS: O2SAT 99
[2019-03-26 19:17] VITALS: BP 159/76; TEMP 97.4
--- NOTE | 2019-04-09 15:09 | DS ---
SUPERVISING PHYSICIAN: Arturo Parra MD ADMISSION DIAGNOSIS: 1. Significant electrolyte imbalance including hypomagnesemia, hypokalemia and hyponatremia. 2. Urinary tract infection. 3. Dehydration contributing to #1. 4. Depression with anxiety. 5. Gastroesophageal reflux disease that most likely is contributing to #1. 6. Hypertension. 7. Hiatal hernia. DISCHARGE DIAGNOSIS: 1. Hyponatremia, likely due to SIADH with a normal ACTH stimulation test with some degree of chronicity with the patient having previously been on hydrochlorothiazide, needing further followup with soapstoner. 2. Acute cystitis with no evidence of actually infection. 3. Dehydration, resolved. 4. Depression with anxiety. 5. Gastroesophageal reflux disease that most likely is contributing to #1. 6. Hypertension. 7. Hiatal hernia. 8. Significant weight loss of 35 pounds over the last 8 to 9 months. Hemoglobin A1c was normal and may be due to increased stress and anxiety. REASON FOR HOSPITALIZATION: The patient is a 63 year-old female who came to the Emergency Room due to nausea and chest discomfort. She has generally just felt poorly, though symptoms have been going on for over a week. She was actually in the hospital on 03/17/19 and was admitted at that time for electrolyte disturbance. She was sent home the next day. She initially felt better but then her symptoms returned. She has been nauseated, vomiting with dry heaves. Her Hydrochlorothiazide was recently switched to Losartan for her blood pressure Her chest pain was described as pressure, dull in nature, it was nonradiating. In the Emergency Room, her initial vital signs were temperature 97, heart rate 92, blood pressure 177/92, respiratory rate 18, oxygen saturation 94%. Laboratory studies showed a CBC that was unremarkable. Her chemistries showed a sodium of 119, potassium 3.3, chloride 81, carbon dioxide 25, calcium 8.9, magnesium 1.5. BUN 10, creatinine less than 0.40 and her serum osmolality was 239.1. Liver enzymes were basically within normal limits and her troponin was less than 0.02. TSH 1.09. Urinalysis showed 15 ketones, trace of intact blood, trace of urine leukocyte esterase and 10 to 20 urine WBCs. Her chest x-ray shows large heart without congestive failure and a large he is able to hernia. She was given some magnesium replacement as well as some oral potassium, some fluid bolus and I was called for hospital admission. LABORATORY: CBC on admission and prior to discharge was within normal limits with white count 7,000 at discharge. Chemistries showed initial sodium on admission 119. Prior to discharge, it had gone up to 127 with therapy. Potassium on discharge was 3.5. On admission, it was 3.3. She did have a continued low serum osmolality. On admission, it was 239 and prior to discharge was up to 255. Creatinine was within normal limits at 0.52 on discharge. Liver functions were all within normal limits. Troponins were all normal. She did have a low magnesium of 1.4 initially on admission. With replacement, it was 2.0 on discharge. Urinalysis on admission just showed 15 ketones, trace intact blood with trace leukocyte esterase, 10 to 20 WBCs, rare bacteria. She did have a urine sodium initially that was 45, potassium 53.2 and serum osmolality 225. Urine chloride without creatinine was 101. ACTH stimulation test was normal. Please see that report for details. RADIOLOGY: Initially, she had a chest x-ray and per radiologic interpretation showed large heart without any congestion failure, large hiatal hernia. She had a CT of the chest per radiologic interpretation showed bibasilar atelectasis, a 9 cm hiatal hernia with small pericardial fluid and dextroscoliosis. Her EKG showed normal sinus rhythm on admission with no ST or T-wave changes that were concerning. She had an echocardiogram and per Dr. Mendiola ejection fraction was 60%. HOSPITAL COURSE: Ms. Cobb was admitted for hyponatremia. She was given saline infusions over the duration of admission with good response to treatment. She was showing good clinical improvement and was felt on the day of discharge that she was stable enough to continue with outpatient management. DISCHARGE PHYSICAL EXAMINATION: VITAL SIGNS: Temperature 97.4. pulse 91. Blood pressure 159/76. Respirations 18. Saturation 98% on room air. GENERAL: The patient is resting comfortably, appears to be in no acute distress. CHEST: Clear to auscultation. HEART: Regular rate and rhythm. ABDOMEN: Soft, nontender. Positive bowel sounds. EXTREMITIES: Without any edema. NEUROLOGIC: She is alert and oriented times three. PLAN: Ms. Cobb was discharged on 03/26/19 with instructions to followup with Dr. Rivers and to call his office. That number was provided. As well, to followup with Camille Bhatti. She was to resume previous medications as instructed. She was encouraged to limit her total fluids to less than 1500 mL per day. She had an appointment to have labs drawn to recheck BMP prior to see Dr. Rivers or Camille Bhatti. She was told to return to the hospital should she have any worsening symptoms. Diet at discharge was regular diet as tolerated. Activity to increase as tolerated. MEDICATIONS PRESCRIBED AT DISCHARGE: 1. Pristiq 50 mg daily, #30, no refills. All other medications prior to hospitalization were continued which included Cozaar. DISPOSITION: The patient is discharged home. CONDITION ON DISCHARGE: Stable and improved. #[id number] MTDD
== END 2019-03-26 16:25 | disposition home or self-care (01) | DRG 644 ==
LOC: ER 11:29 → MS 13:41 → OBSVTOIN 13:41
PROVIDERS: ADMIT Nurse Practitioner Acute Care; ATTEND Nurse Practitioner Family
DX: E22.2 Syndrome of inappropriate secretion of antidiuretic hormone (principal); N30.00 Acute cystitis without hematuria; E83.42 Hypomagnesemia; E87.6 Hypokalemia; I10 Essential (primary) hypertension; F32.9 Major depressive disorder, single episode, unspecified; F41.9 Anxiety disorder, unspecified; E86.0 Dehydration; K21.9 Gastro-esophageal reflux disease without esophagitis; K44.9 Diaphragmatic hernia without obstruction or gangrene; R63.4 Abnormal weight loss; K59.00 Constipation, unspecified; Z88.8 Allergy status to other drugs, medicaments and biological substances

== ENCOUNTER 2019-04-03 12:23 | Emergency (ER) | payer BC ==
[2019-04-03 13:32] VITALS: TEMP 97
[2019-04-03] MEDS ORDERED: SODIUM CHLORIDE 0.9% 1000ML 1,000 ML IVS ONE (13:34)
[2019-04-03] MEDS ORDERED: ONDANSETRON INJ 4 MG/2 ML VIAL ONE (14:21)
[2019-04-03] MEDS ORDERED: ONDANSETRON INJ 4 MG/2 ML VIAL IV ONE (14:26)
[2019-04-03] MEDS ORDERED: MAGNESIUM SULFATE INJ 1 GM in SODIUM CHLORIDE 0.9% 100ML 100 ML IVPB ONE (15:25)
[2019-04-03] MEDS ORDERED: PROCHLORPERAZINE INJ 10 MG/2 ML VIAL IV ONE (15:26)
[2019-04-03] MEDS ORDERED: KETOROLAC TROMETHAMINE INJ 30 MG/ML VIAL IV ONE (15:26)
[2019-04-03] MEDS ORDERED: MAGNESIUM SULFATE INJ 1 GM/2 ML VIAL ONE (15:48)
[2019-04-03] MEDS ORDERED: SODIUM CHLORIDE 0.9% 100ML 100 ML IVPB ONE (15:49)
--- NOTE | 2019-04-03 15:51 | ED.PDOC ---
History of Present Illness - General Chief Complaint: General Time Seen by Provider: 04/03/19 13:32 Source: patient, RN notes reviewed, Vital Signs reviewed Exam Limitations: no limitations Additional Information: Pt presents with c/o feeling shaky, just like she felt the 2 previous times she was admitted for hyponatremia in the last 2 weeks. Pt denies cp/sob. Patient also denies n/v/d/parasthesias. Pt c/o generalized weakness and headache. - History of Present Illness Timing/Duration: 24 hours Severity: moderate Improving Factors: nothing Worsening Factors: nothing Associated Symptoms: headaches, malaise, weakness Allergies/Adverse Reactions: Allergies NO KNOWN ALLERGY Allergy (Verified 03/21/19 14:34) Home Medications: Ambulatory Orders Losartan Potassium [Cozaar] 50 mg PO DAILY 30 Days #30 tab 03/18/19 Desvenlafaxine Succinate [Pristiq] 50 mg PO DAILY #30 tab 03/23/19 Cefdinir 300 mg PO BID #10 capsule 04/03/19 Review of Systems - Review of Systems Constitutional: States: see HPI, malaise, weakness EENTM: States: no symptoms reported Respiratory: States: no symptoms reported Cardiology: States: no symptoms reported Gastrointestinal/Abdominal: States: no symptoms reported Musculoskeletal: States: no symptoms reported Skin: States: no symptoms reported Neurological: States: anxiety, headache, tremors Endocrine: States: no symptoms reported Hematologic/Lymphatic: States: no symptoms reported All other Systems: Reviewed and Negative Past Medical History (General) - Patient Medical History Hx Seizures: No Hx Stroke: No Hx Asthma: No Hx of COPD: No Hx Cardiac Disorders: No Hx Congestive Heart Failure: No Hx Pacemaker: No Hx Hypertension: No Hx Diabetes: No Hx Cancer: No Hx MRSA: No Surgical History: other - Vaccination History Hx Tetanus, Diphtheria Vaccination: Yes Hx Influenza Vaccination: No - refused Hx Pneumococcal Vaccination: No - refused - Social History Hx Tobacco Use: Yes Hx Alcohol Use: No Hx Substance Use: No Hx Substance Use Treatment: No Hx Depression: No Hx Physical Abuse: No Hx Emotional Abuse: No - Female History Patient : No Family Medical History - Family History Mother Family History: No Known Living Status: Still Living Physical Exam - Physical Exam General Appearance: Agitated, Alert, Anxious, Restless, Well Developed, Well Groomed, Well Hydrated, Well Nourished Eye Exam: bilateral normal Ears, Nose, Throat: hearing grossly normal, normal ENT inspection, normal pharynx Neck: full range of motion, supple, normal inspection Respiratory: chest non-tender, lungs clear, normal breath sounds, no respiratory distress, no accessory muscle use Cardiovascular/Chest: normal peripheral pulses, regular rate, rhythm, no edema, no gallop, no JVD, no murmur Peripheral Pulses: radial,right: 2+, radial,left: 2+ Gastrointestinal/Abdominal: normal bowel sounds, non tender, soft, no organomegaly, no pulsatile mass Back Exam: normal inspection, no vertebral tenderness Extremity: normal range of motion, non-tender, normal inspection, no pedal edema Neurologic: finishing range supervisor II-XII nml as tested, no motor/sensory deficits, alert, oriented x 3, depressed affect, other - pt with generalized tremors Skin Exam: normal color, warm/dry Lymphatic: no adenopathy Progress - Progress Progress: 04/03/19 16:24 Pt's symptoms have improved after ivf and iv meds. Pt ready for d/c home. - Results/Orders Results/Orders: 04/03/19 13:45 EKG .ONCE 04/03/19 15:25 Magnesium Sulfate Inj 1 gm Sodium Chloride 0.9% 100Ml [NS (NACL 0.9%) 100ml] 100 ml IVPB ONCE Laboratory Results - last 24 hr 04/03/19 04/03/19 04/03/19 13:45 13:45 13:52 WBC 8.1 RBC 4.73 Hgb 14.1 Hct 41.6 MCV 88.0 MCH 29.7 MCHC 33.8 RDW 12.8 Plt Count 339 MPV 8.6 Absolute Neuts (auto) 6.80 Absolute Lymphs (auto) 0.60 L Absolute Monos (auto) 0.60 Absolute Eos (auto) 0.00 Absolute Basos (auto) 0.10 Neutrophils % 83.9 H Lymphocytes % 7.7 L Monocytes % 7.2 Eosinophils % 0.5 L Basophils % 0.7 Sodium 126 L Potassium 4.0 Chloride 86 L Carbon Dioxide 27 Anion Gap 17.0 BUN 11 Creatinine 0.44 L BUN/Creatinine Ratio 25.0 H Random Glucose 123 H Serum Osmolality 254.1 L* Calcium 9.5 Total Bilirubin 0.8 AST 16 ALT 17 Alkaline Phosphatase 57 Serum Total Protein 7.8 Albumin 4.4 Globulin 3.4 Albumin/Globulin Ratio 1.3 Lipase 26 Urine Color Yellow Urine Appearance Sl cloudy Urine pH 7.0 Ur Specific [place] 1.020 Urine Protein Negative Urine Glucose (UA) Negative Urine Ketones Trace Urine Blood Trace-intact H Urine Nitrite Negative Urine Bilirubin Negative Urine Urobilinogen 2.0 H Ur Leukocyte Esterase Negative Urine RBC 3-5 H Urine WBC 3-5 H Ur Epithelial Cells 1-3 Amorphous Sediment 2+ Urine Bacteria 2+ H Urine Mucus Moderate - EKG/XRAY/CT Comments: NSR@89bpm, LAE, septal infarct age indeterminate, abnormal ekg. Departure - Departure Clinical Impression: Weakness, Hyponatremia syndrome Headache Qualifiers: Headache type: unspecified Headache chronicity pattern: acute headache Intractability: not intractable Qualified Code(s): R51 - Headache Urinary tract infection Qualifiers: Urinary tract infection type: acute cystitis Hematuria presence: without hematuria Qualified Code(s): N30.00 - Acute cystitis without hematuria Time of Disposition: 16:28 Disposition: Discharge to Home or Self Care Departure Forms: ED Discharge - Pt. Copy, Patient Portal Self Enrollment Instructions: Urinary Tract Infection, Adult (DC), Headache, Adult (DC), Hyponatremia (DC) Referrals: Camille Bhatti NP [Primary Care Provider] - 1-2 Weeks Prescriptions: Cefdinir 300 mg PO BID #10 capsule Home Medications: Ambulatory Orders Losartan Potassium [Cozaar] 50 mg PO DAILY 30 Days #30 tab 03/18/19 Desvenlafaxine Succinate [Pristiq] 50 mg PO DAILY #30 tab 03/23/19 Cefdinir 300 mg PO BID #10 capsule 04/03/19
[2019-04-03 15:52] VITALS: O2SAT 94
[2019-04-03 16:53] VITALS: BP 145/71
== END 2019-04-03 16:45 | disposition home or self-care (01) ==
LOC: ER 12:23
DX: R51 Headache (principal); N30.00 Acute cystitis without hematuria; E87.1 Hypo-osmolality and hyponatremia; R53.1 Weakness; R94.31 Abnormal electrocardiogram [ECG] [EKG]; Z87.891 Personal history of nicotine dependence
CPT/HCPCS: 80053; 81001; 83690; 85025; 93005; J0780; J1885; J2405; J3475; J7030; J7050